=== PATIENT | female | born 1965 | race Caucasian/White ===

== ENCOUNTER 2017-12-10 16:53 | Emergency (ER) | payer BC, MEDICAID, OTHER, SELFPAY ==
[~2017-12-10] VITALS: Ht 165.1 cm; Wt 80.2 kg
[2017-12-10 17:07] VITALS: BP 131/87
[2017-12-10] MEDS ORDERED: BENZONATATE 100 MG CAPSULE PO ONE (18:00)
[2017-12-10] MEDS ORDERED: BENZONATATE 100 MG CAPSULE ONE (18:02)
== END 2017-12-10 18:39 | disposition home or self-care (01) ==
LOC: ED 17:30
DX: J45.909 Unspecified asthma, uncomplicated (principal); J20.8 Acute bronchitis due to other specified organisms
CPT/HCPCS: 71046; 99284

== ENCOUNTER 2018-11-27 20:50 | Observation (INO) | payer MEDICAID ==
[~2018-11-27] VITALS: Ht 162.6 cm; Wt 78.6 kg
--- NOTE | 2018-11-27 21:01 | NUR ---
BIB [facility] d/t sudden left side weakness or numbness unable to find word during the work at seven eleven when [facility] arrival pt's symptom's were gone pt [id number] left side numb was gone vss stable fsbs 97 12 ekg wdl pt denied pain hx depression hypothyroid
[2018-11-27] MEDS ORDERED: TRAZ-137 PO (21:05)
[2018-11-27] MEDS ORDERED: MONT10TA6 PO (21:05)
[2018-11-27] MEDS ORDERED: BENZ100C PO (21:05)
[2018-11-27] MEDS ORDERED: LORA10TA62 PO (21:05)
[2018-11-27] MEDS ORDERED: CYCL-259 PO (21:06)
--- NOTE | 2018-11-27 22:03 | NUR ---
given urine cup for ua pt understood
[2018-11-27 22:21] LABS: BASOPHILS # (AUTO) 0.02 x10^3/uL (0-0.1); BASOPHILS % (AUTO) 0 % (0-1); EOSINOPHILS # (AUTO) 0.11 x10^3/uL (0-0.4); EOSINOPHILS % (AUTO) 2 % (1-7); LYMPHOCYTES # (AUTO) 1.22 x10^3/uL (1-3.4); LYMPHOCYTES % (AUTO) 23 % (22-44); MD NO; MEAN CORPUSCULAR HGB CONC 33.5 g/dL (32.4-35.8); MEAN CORPUSCULAR VOLUME 92.5 fL (80-100); MEAN PLATELET VOLUME 8.6 fL (7.4-10.4); MONOCYTES # (AUTO) 0.55 x10^3/uL (0.2-0.8); MONOCYTES % (AUTO) 10 % (2-9); NEUTROPHILS # (AUTO) 3.47 x10^3/uL (1.8-6.8); NEUTROPHILS % (AUTO) 65 % (42-75); PLATELET COUNT 218 x10^3/uL (130-400); RED BLOOD COUNT 4.11 x10^6/uL (3.82-5.3); RED CELL DISTRIBUTION WIDTH 13.6 % (9.6-15.2)
[2018-11-27 22:28] LABS: INTERNATIONAL NORMALIZED RATIO 0.97 (0.93-1.1); PROTHROMBIN TIME 10.3 Seconds (9.6-11.5)
[2018-11-27 22:31] LABS: ALANINE AMINOTRANSFERASE 17 U/L (12-78); ANION GAP 4 mmol/L (5-15); CALCIUM 8.9 mg/dL (8.5-10.1); CHLORIDE 110 mmol/L (98-107); CREATININE 0.95 mg/dL (0.55-1.02)
[2018-11-27 22:35] LABS: ALKALINE PHOSPHATASE 94 U/L (45-117); BILIRUBIN,TOTAL 0.3 mg/dL (0.2-1.0); TOTAL PROTEIN 7.2 g/dL (6.4-8.2); TROPONIN I < 0.015 ng/mL (0.000-0.045)
[2018-11-27 23:35] LABS: MICROSCOPIC NOT IND
[2018-11-27 23:37] LABS: CULTURE INDICATED? NO
--- NOTE | 2018-11-27 23:54 | NUR ---
pt is resting vss
--- NOTE | 2018-11-28 00:59 | NUR ---
pt will be admitted d/t pt's symptoms having per julius mcmillan
--- NOTE | 2018-11-28 01:25 | NUR ---
given report to silvano rick updated
[2018-11-28 01:57] VITALS: BP 148/95
[2018-11-28 02:07] VITALS: BP 148/95
[2018-11-28] MEDS ORDERED: FAMO20TA7 PO (03:45)
[2018-11-28] MEDS ORDERED: POLYETHYLENE GLYCOL 17 GM PACKET PO PRN (05:00)
[2018-11-28] MEDS ORDERED: GUAIFENESIN/DM 200-20MG, 10ML UDC PO PRN (05:00)
[2018-11-28] MEDS ORDERED: ONDANSETRON 4 MG TABLET PO PRN (05:00)
[2018-11-28] MEDS ORDERED: ONDANSETRON 2MG/ML, 2ML IVPush PRN (05:00)
[2018-11-28] MEDS ORDERED: BENZONATATE 100 MG CAPSULE PO PRN (05:00)
[2018-11-28] MEDS ORDERED: ACETAMINOPHEN 325 MG TABLET PO PRN (05:00)
[2018-11-28] MEDS ORDERED: CYCLOBENZAPRINE 10 MG TABLET PO PRN (05:00)
[2018-11-28 06:22] LABS: CHOL/HDL RATIO 3.2; LDL/HDL RATIO 1.9 (0.5-3.0)
[2018-11-28 08:12] VITALS: BP 114/76
[2018-11-28] MEDS: SODIUM CHLORIDE 0.9% 1,000 ML IV SCH ×2 (08:50→14:57)
[2018-11-28] MEDS: LORATADINE 10 MG TABLET PO SCH (08:51)
[2018-11-28] MEDS: FAMOTIDINE 20 MG TABLET PO SCH ×2 (08:52→22:06)
[2018-11-28] MEDS: ASPIRIN 81 MG TABLET CHEW PO/NG SCH (08:52)
[2018-11-28] MEDS ORDERED: MONTELUKAST 10 MG TABLET PO SCH ×2 (09:00→21:00)
[2018-11-28] MEDS ORDERED: DIPHENHYDRAMINE 25 MG CAPSULE PO ONE (09:30)
[2018-11-28 13:04] VITALS: BP 115/76
[2018-11-28 18:21] VITALS: BP 126/74
[2018-11-28] MEDS ORDERED: ATORVASTATIN 40 MG TABLET PO SCH (21:00)
[2018-11-28] MEDS: TRAZODONE 100MG TABLET PO PRN ×2 (22:06→23:40)
[2018-11-29] MEDS: SODIUM CHLORIDE 0.9% 1,000 ML IV SCH (01:44)
[2018-11-29 04:46] VITALS: BP 105/69
[2018-11-29 07:54] VITALS: BP 111/76
[2018-11-29] MEDS: LORATADINE 10 MG TABLET PO SCH (08:31)
[2018-11-29] MEDS: ASPIRIN 81 MG TABLET CHEW PO/NG SCH (08:32)
[2018-11-29] MEDS: FAMOTIDINE 20 MG TABLET PO SCH (08:32)
[2018-11-29 12:37] VITALS: BP 112/71
[2018-11-29] MEDS ORDERED: ASPI81TA45 PO (13:37)
[2018-11-29] MEDS ORDERED: GUAI5SYR PO (13:37)
[2018-11-29] MEDS ORDERED: ATOR40TA78 PO (13:37)
== END 2018-11-29 15:22 | disposition home or self-care (01) ==
LOC: ED 21:42 → INTOOBSV 11-28 00:51 → EDIP 11-28 00:51 → 4EST 11-28 01:49 → DCLOUNGE 11-29 15:12
PROVIDERS: ADMIT Hospitalist; ATTEND Hospitalist
DX: G45.9 Transient cerebral ischemic attack, unspecified (principal); F10.10 Alcohol abuse, uncomplicated; J42 Unspecified chronic bronchitis; J45.909 Unspecified asthma, uncomplicated; F32.9 Major depressive disorder, single episode, unspecified; R42 Dizziness and giddiness
CPT/HCPCS: 0399T; 36415; 70450; 70551; 80053; 80061; 80307; 81003; 84484; 85025; 85610; 85730; 92610; 93005; 93306; 93880; 96360; 96361; 97161; 97165; 99284; G0378; J7030; 99285

== ENCOUNTER 2019-05-21 11:59 | Inpatient (IN) | payer MEDICAID ==
[~2019-05-21] VITALS: Ht 162.6 cm; Wt 68.2 kg
[2019-05-23 13:48] VITALS: BP 117/77
== END 2019-05-23 17:00 | disposition home health service (06) | DRG 552 ==
LOC: ED 13:58 → EDIP 14:01 → SUATTDRO 14:21 → 3NE 14:48 → DCLOUNGE 05-23 16:41
PROVIDERS: ADMIT Internal Medicine; ATTEND Internal Medicine
DX: S32.011A Stable burst fracture of first lumbar vertebra, initial encounter for closed fracture (principal); M51.36 Other intervertebral disc degeneration, lumbar region; W01.0XXA Fall on same level from slipping, tripping and stumbling without subsequent striking against object, initial encounter; J45.909 Unspecified asthma, uncomplicated; F17.200 Nicotine dependence, unspecified, uncomplicated; M41.9 Scoliosis, unspecified; Z86.73 Personal history of transient ischemic attack (TIA), and cerebral infarction without residual deficits; Y93.89 Activity, other specified; Y99.8 Other external cause status; Z82.3 Family history of stroke; Z90.710 Acquired absence of both cervix and uterus; Y92.009 Unspecified place in unspecified non-institutional (private) residence as the place of occurrence of the external cause; Z90.721 Acquired absence of ovaries, unilateral; M51.26 Other intervertebral disc displacement, lumbar region
CPT/HCPCS: 36415; 72128; 72131; 72148; 80048; 80053; 80307; 82040; 83735; 84100; 84443; 85025; 85610; 85730; 93005; 96374; 96376; G0378; J1885; J2405; J2270; J2800; J7030

== ENCOUNTER 2019-09-30 17:54 | Emergency (ER) | payer MEDICAID ==
[~2019-09-30] VITALS: Ht 162.6 cm; Wt 68.0 kg
[~2019-09-30 17:54] MED LIST: ACET325T26 PO; ASPI81TA45 PO; ATOR40TA78 PO; BENZ100C PO; BISA10SU4 PR; CYCL-259 PO; FAMO20TA7 PO; FENT1PAT74 TD; GUAI5SYR PO; HYDR-36 PO; LORA10TA62 PO; METH750T87 PO; MONT10TA6 PO; OMEP-110 PO; ONDA4TAB12 PO; POLY17PO5 PO; SENN-193 PO; TRAM50TA2 PO; TRAZ-137 PO
[2019-09-30 18:04] VITALS: BP 103/52
--- NOTE | 2019-09-30 18:19 | NUR ---
pt biba to ed for anxiety or back pain. pt is a poor historian and is rambling. pt initially stated she was "having a lot of drama in my life" regarding her daughter and grandson and custody issues. pt then stated she called ems for back pain related to a spinal fusion she had last month. per ems report, pt was briskly walking around home while chasing dog in an "anxious and paranoid" manner and in no obvious back pain. ems reports that pt's mother recently and she also quit taking trintellix (antidepressant). 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 Dr. Cheng to bs for assessment. awaiting orders.
[2019-09-30] MEDS ORDERED: HYDROcodone/APAP 5/325 TABLET PO STA (18:21)
[2019-09-30] MEDS ORDERED: HYDROcodone/APAP 5/325 TABLET ONE (18:31)
--- NOTE | 2019-09-30 18:37 | NUR ---
pt medicated per mar. vss. message left with sw for consult. warm blanket provided for comfort. no other needs expressed. call light within reach. awaiting sw consult.
--- NOTE | 2019-09-30 18:40 | NUR ---
bossman Billingsley to homero.
[2019-09-30] MEDS ORDERED: HYDROcodone/APAP 5/325 TABLET PO ONE (19:00)
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
== END 2019-09-30 19:55 | disposition home or self-care (01) ==
LOC: ED 19:22
DX: F41.1 Generalized anxiety disorder (principal); M54.5 Low back pain; M54.6 Pain in thoracic spine; I10 Essential (primary) hypertension; K21.9 Gastro-esophageal reflux disease without esophagitis; J45.909 Unspecified asthma, uncomplicated
CPT/HCPCS: 99283

== ENCOUNTER 2020-01-09 05:54 | Emergency (ER) | payer MEDICAID ==
[~2020-01-09] VITALS: Ht 170.2 cm; Wt 68.2 kg
[~2020-01-09 05:54] MED LIST changes: +ONDA-89 PO; -ONDA4TAB12 PO; -TRAZ-137 PO; +TRAZ-175 PO
[2020-01-09] MEDS ORDERED: CYCLOBENZAPRINE 10 MG TABLET ONE (06:43)
[2020-01-09] MEDS ORDERED: KETOROLAC 30 MG/1 ML ONE (06:44)
[2020-01-09] MEDS ORDERED: ONDANSETRON 2MG/ML, 2ML ONE (06:44)
[2020-01-09] MEDS ORDERED: HYDROmorphone 1 MG/ML, 1ML INJ ONE (06:44)
[2020-01-09] MEDS ORDERED: ONDANSETRON 2MG/ML, 2ML IVPush ONE (07:00)
[2020-01-09] MEDS ORDERED: CYCLOBENZAPRINE 10 MG TABLET PO ONE (07:00)
[2020-01-09] MEDS ORDERED: KETOROLAC 30 MG/1 ML IVPush ONE (07:00)
[2020-01-09] MEDS ORDERED: HYDROmorphone 1 MG/ML, 1ML INJ IVPush PRN (07:00)
--- NOTE | 2020-01-09 07:00 | NUR ---
assumed care of pt. ines from Devonte MCCRACKEN. pt here for pain contol. pt reports hat she is s/p lower back surgey and that she has completed her PT and is no longer tkaing any of her pain medication bu that yesterday she had s/o lower back pain. pt denies numbness/tingling o LW but reports hat she has had some loss of bladder control. pt is able to [place] on gurney without difficulty. 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 pt reports hat her initial pain score was 10/10 but is now down to 4/10 and that she is feeling much better. pt was slightly hypoxic on RA after pain meds, NC placed at 2L and hypoxia resolved. warm blankets given and pt positioning with lights dimmed for comfort. no family at bedside
[2020-01-09] MEDS ORDERED: trintellix PO (07:22)
[2020-01-09] MEDS ORDERED: FAMO20TA7 PO (07:22)
[2020-01-09 09:19] VITALS: BP 124/58
== END 2020-01-09 09:24 | disposition home or self-care (01) ==
LOC: ED 06:25
DX: S29.012A Strain of muscle and tendon of back wall of thorax, initial encounter (principal); J45.909 Unspecified asthma, uncomplicated; I10 Essential (primary) hypertension; K21.9 Gastro-esophageal reflux disease without esophagitis; E78.5 Hyperlipidemia, unspecified; X58.XXXA Exposure to other specified factors, initial encounter; Y93.89 Activity, other specified; Y92.89 Other specified places as the place of occurrence of the external cause; Y99.8 Other external cause status
CPT/HCPCS: 96374; 96375; 99284; J1170; J1885; J2405

== ENCOUNTER 2020-01-30 17:02 | Emergency (ER) | payer MEDICAID ==
[~2020-01-30] VITALS: Ht 162.6 cm; Wt 63.7 kg
[~2020-01-30 17:02] MED LIST changes: +trintellix PO
--- NOTE | 2020-01-30 17:54 | NUR ---
RIGHT UPPER BACK PAIN AFTER BENDING OVER TO BUTCHER HEAD DOG POOP
[2020-01-30] MEDS ORDERED: KETOROLAC 30 MG/1 ML IM ONE (18:00)
[2020-01-30] MEDS ORDERED: LORazepam 1MG TABLET PO ONE (18:00)
[2020-01-30] MEDS ORDERED: KETOROLAC 30 MG/1 ML ONE (18:05)
[2020-01-30] MEDS ORDERED: LORazepam 1MG TABLET ONE (18:05)
--- NOTE | 2020-01-30 18:27 | NUR ---
UPON RETURN FROM XRAY MEDICATED FOR RIGHT UPPER BACK PAIN, NOTED ON MAR
--- NOTE | 2020-01-30 19:00 | NUR ---
REPORT RECEIVED FROM NAWAF MISTRY. ASSUMED CARE OF PT. AT THIS TIME.
[2020-01-30] MEDS ORDERED: HYDROcodone/APAP 5/325 TABLET PO STA (19:33)
[2020-01-30] MEDS ORDERED: HYDROcodone/APAP 5/325 TABLET ONE (19:36)
[2020-01-30] MEDS ORDERED: LIDODERM 5% PATCH TD ONE ×2 (19:36→20:00)
--- NOTE | 2020-01-30 20:20 | NUR ---
PT REPORTS PAIN IS TOLERABLE AT THIS TIME, RATED AT 5/10. PT ABLE TO MOVE ALL EXTREMITIES W/O DIFFICULTY AND DRESSED SELF W/O GRIMACING. PT REQUESTED AND WAS PROVIDED WITH CAB VOUCHER. PT AO X 4. SKIN PWD. RESP EVEN AND UNLABORED.
[2020-01-30 20:35] VITALS: BP 106/75
== END 2020-01-30 20:38 | disposition home or self-care (01) ==
LOC: ED 19:13
DX: S29.012A Strain of muscle and tendon of back wall of thorax, initial encounter (principal); I10 Essential (primary) hypertension; K21.9 Gastro-esophageal reflux disease without esophagitis; J45.909 Unspecified asthma, uncomplicated; E78.5 Hyperlipidemia, unspecified; G89.29 Other chronic pain; X58.XXXA Exposure to other specified factors, initial encounter; Y93.89 Activity, other specified; Y92.89 Other specified places as the place of occurrence of the external cause; Y99.8 Other external cause status
CPT/HCPCS: 72072; 96372; 99284; J1885

== ENCOUNTER 2020-02-20 00:23 | Emergency (ER) | payer MEDICAID ==
[~2020-02-20] VITALS: Ht 162.6 cm; Wt 65.0 kg
[2020-02-20 00:43] VITALS: BP 137/83
--- NOTE | 2020-02-20 00:46 | NUR ---
Patient BIB [facility] c/o right back pain which radiates into right shoulder post mechanical GLF. Patient states she tripped and hyperextended her back. Patient has a hx of back surgeries with chronic pain. Patient is wearing a back brace which she does not wear all the time but only for certain tasks. Patient is in NAD. Respirations even and unlabored.
[2020-02-20] MEDS ORDERED: METHOCARBAMOL 750 MG TABLET PO ONE (01:00)
[2020-02-20] MEDS ORDERED: METHOCARBAMOL 750 MG TABLET ONE (01:18)
== END 2020-02-20 01:24 | disposition home or self-care (01) ==
LOC: ED 01:00
DX: S29.012A Strain of muscle and tendon of back wall of thorax, initial encounter (principal); I10 Essential (primary) hypertension; K21.9 Gastro-esophageal reflux disease without esophagitis; G89.29 Other chronic pain; J45.909 Unspecified asthma, uncomplicated; E78.5 Hyperlipidemia, unspecified; W01.0XXA Fall on same level from slipping, tripping and stumbling without subsequent striking against object, initial encounter; Y93.89 Activity, other specified; Y92.098 Other place in other non-institutional residence as the place of occurrence of the external cause; Y99.8 Other external cause status
CPT/HCPCS: 72072; 99283

== ENCOUNTER 2020-03-04 06:24 | Emergency (ER) | payer MEDICAID ==
[~2020-03-04] VITALS: Ht 162.6 cm; Wt 75.0 kg
[~2020-03-04 06:24] MED LIST changes: +HYDR-3246 PO; -HYDR-36 PO
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
[2020-03-04] MEDS ORDERED: LORazepam 1MG TABLET ONE (06:54)
--- NOTE | 2020-03-04 06:58 | NUR ---
MEDICATED PER MAR.
[2020-03-04] MEDS ORDERED: LORazepam 1MG TABLET PO ONE (07:00)
--- NOTE | 2020-03-04 07:01 | NUR ---
REPORT GIVEN TO JERAMY MCCRACKEN.
[2020-03-04 07:23] LABS: BASOPHILS # (AUTO) 0.02 x10^3/uL (0-0.1); BASOPHILS % (AUTO) 1 % (0-1); EOSINOPHILS # (AUTO) 0.27 x10^3/uL (0-0.4); EOSINOPHILS % (AUTO) 5 % (1-7); LYMPHOCYTES # (AUTO) 2.18 x10^3/uL (1-3.4); LYMPHOCYTES % (AUTO) 44 % (22-44); MD NO; MEAN CORPUSCULAR HEMOGLOBIN 32.6 pg (27.0-34.8); MEAN CORPUSCULAR HGB CONC 33.5 g/dL (32.4-35.8); MEAN CORPUSCULAR VOLUME 97.2 fL (80-100); MEAN PLATELET VOLUME 8.2 fL (7.4-10.4); MONOCYTES # (AUTO) 0.31 x10^3/uL (0.2-0.8); MONOCYTES % (AUTO) 6 % (2-9); NEUTROPHILS # (AUTO) 2.21 x10^3/uL (1.8-6.8); NEUTROPHILS % (AUTO) 44 % (42-75); PLATELET COUNT 166 x10^3/uL (130-400); RED BLOOD COUNT 4.25 x10^6/uL (3.82-5.3); RED CELL DISTRIBUTION WIDTH 14.4 % (9.6-15.2)
[2020-03-04 07:30] VITALS: BP 147/107
--- NOTE | 2020-03-04 07:31 | NUR ---
PT AMBULATED TO BR WITH STEADY GAIT, PT PROVIDED UA SAMPLE, THIS SENT TO LAB. PT ANXIOUS, REQUESTING THIS RN TO CALL EMERGENCY CONTACT, EXPLAINED TO PT WE ARE AWAITING LABS AND TESTS RESULTS, PT WANTS CONTACT TO KNOW SHE IS HERE. WILL CALL DENISE FRITZ [phone]
[2020-03-04 07:34] LABS: ALANINE AMINOTRANSFERASE 33 U/L (12-78); ALBUMIN 3.9 g/dL (3.4-5.0); ANION GAP 8 mmol/L (5-15); CALCIUM 8.6 mg/dL (8.5-10.1); CHLORIDE 109 mmol/L (98-107)
[2020-03-04 07:37] LABS: ALKALINE PHOSPHATASE 133 U/L (45-117); BILIRUBIN,TOTAL 0.4 mg/dL (0.2-1.0); CREATININE 0.88 mg/dL (0.55-1.02); TOTAL PROTEIN 7.8 g/dL (6.4-8.2)
[2020-03-04 07:42] LABS: MICROSCOPIC AUTO
[2020-03-04 07:51] LABS: AMPHETAMINE SCREEN, URINE Negative (Negative); BARBITURATE SCREEN, URINE Negative (Negative); BENZODIAZEPINE SCREEN, URINE Negative (Negative); CANNABINOID SCREEN, URINE Negative (Negative); COCAINE SCREEN, URINE Negative (Negative); METHADONE SCREEN, URINE Negative (Negative); OPIATE SCREEN, URINE Negative (Negative)
--- NOTE | 2020-03-04 08:01 | NUR ---
PT NOW RUNNING OUT OF ROOM TO KUHN, STATES "SOMETHING IS WRONG WITH MY EYES, THEY ARE GOING TO BULGE OUT" PT CRYING, PT CALMED AND REASSURED, PT REFUSING MONITORING EQUIP AT THIS TIME. ERMD UPDATED
[2020-03-04] MEDS ORDERED: KETOROLAC 30 MG/1 ML ONE (08:15)
[2020-03-04] MEDS ORDERED: ACETAMINOPHEN 325 MG TABLET ONE (08:15)
[2020-03-04] MEDS ORDERED: KETOROLAC 30 MG/1 ML IM ONE (08:30)
[2020-03-04] MEDS ORDERED: ACETAMINOPHEN 325 MG TABLET PO ONE (08:30)
--- NOTE | 2020-03-04 09:02 | NUR ---
EMERGENCY CONTACTED CALLED AND UPDATED ON PT STATUS, PER PT REQUEST. AWAITING DENISE TO HYPERBARIC TECHNOLOGIST PT AT THIS TIME.
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
== END 2020-03-04 09:46 | disposition left against medical advice (07) ==
LOC: ED 06:39
DX: F41.1 Generalized anxiety disorder (principal); N30.00 Acute cystitis without hematuria; F10.229 Alcohol dependence with intoxication, unspecified; R41.0 Disorientation, unspecified; G89.29 Other chronic pain; I10 Essential (primary) hypertension; J45.909 Unspecified asthma, uncomplicated; E78.5 Hyperlipidemia, unspecified; K21.9 Gastro-esophageal reflux disease without esophagitis; Y90.0 Blood alcohol level of less than 20 mg/100 ml
CPT/HCPCS: 36415; 80053; 80307; 81001; 82140; 83690; 85025; 87086; 96372; 99283; J1885

== ENCOUNTER 2020-03-29 20:34 | Emergency (ER) | payer MEDICAID ==
[~2020-03-29] VITALS: Ht 162.6 cm; Wt 70.0 kg
[2020-03-29] MEDS ORDERED: LORazepam 1MG TABLET PO ONE (21:00)
[2020-03-29] MEDS ORDERED: SODIUM CHLORIDE FLUSH 10ML SYR IVF ONE (21:00)
[2020-03-29] MEDS ORDERED: LORazepam 1MG TABLET ONE (21:21)
--- NOTE | 2020-03-29 21:28 | NUR ---
Pt to CT
[2020-03-29 21:31] LABS: BASOPHILS # (AUTO) 0.04 x10^3/uL (0-0.1); BASOPHILS % (AUTO) 1 % (0-1); EOSINOPHILS # (AUTO) 0.15 x10^3/uL (0-0.4); EOSINOPHILS % (AUTO) 3 % (1-7); LYMPHOCYTES # (AUTO) 1.59 x10^3/uL (1-3.4); LYMPHOCYTES % (AUTO) 35 % (22-44); MD NO; MEAN CORPUSCULAR HEMOGLOBIN 32.8 pg (27.0-34.8); MEAN CORPUSCULAR HGB CONC 32.3 g/dL (32.4-35.8); MEAN CORPUSCULAR VOLUME 101.7 fL (80-100); MEAN PLATELET VOLUME 8.1 fL (7.4-10.4); MONOCYTES # (AUTO) 0.37 x10^3/uL (0.2-0.8); MONOCYTES % (AUTO) 8 % (2-9); NEUTROPHILS # (AUTO) 2.34 x10^3/uL (1.8-6.8); NEUTROPHILS % (AUTO) 52 % (42-75); PLATELET COUNT 186 x10^3/uL (130-400); RED BLOOD COUNT 4.01 x10^6/uL (3.82-5.3); RED CELL DISTRIBUTION WIDTH 16.4 % (9.6-15.2)
[2020-03-29 21:36] LABS: ALANINE AMINOTRANSFERASE 25 U/L (12-78); ALBUMIN 3.7 g/dL (3.4-5.0); ANION GAP 7 mmol/L (5-15); CALCIUM 7.8 mg/dL (8.5-10.1); CHLORIDE 109 mmol/L (98-107); CREATININE 1.18 mg/dL (0.55-1.02)
[2020-03-29 21:40] LABS: ALKALINE PHOSPHATASE 128 U/L (45-117); BILIRUBIN,TOTAL 0.3 mg/dL (0.2-1.0); TOTAL PROTEIN 7.4 g/dL (6.4-8.2)
--- NOTE | 2020-03-29 21:54 | NUR ---
Pt able to ambulate to restroom without issue.
[2020-03-29 22:12] LABS: MICROSCOPIC NOT IND
[2020-03-29] MEDS ORDERED: IBUPROFEN 600 MG TABLET ONE (22:23)
[2020-03-29 22:26] LABS: AMPHETAMINE SCREEN, URINE Negative (Negative); BARBITURATE SCREEN, URINE Negative (Negative); BENZODIAZEPINE SCREEN, URINE Negative (Negative); CANNABINOID SCREEN, URINE Negative (Negative); COCAINE SCREEN, URINE Negative (Negative); METHADONE SCREEN, URINE Negative (Negative); OPIATE SCREEN, URINE Negative (Negative)
[2020-03-29] MEDS ORDERED: IBUPROFEN 600 MG TABLET PO ONE (22:30)
--- NOTE | 2020-03-29 22:30 | NUR ---
Pt answering questions more appropriately, speech more clear. Provided with pain medication per request. Provided with po fluids, additional blanket.
--- NOTE | 2020-03-29 22:57 | NUR ---
Handoff report provided to NAWAF Garcia.
[2020-03-29 23:54] VITALS: BP 122/74
--- NOTE | 2020-03-30 00:11 | NUR ---
PT REQUESTED TO GO HOME, PT A/O X4 AND AMBULATED TO BATHROOM WITHOUT ISSUE
== END 2020-03-30 00:29 | disposition home or self-care (01) ==
LOC: ED 21:44
DX: F10.120 Alcohol abuse with intoxication, uncomplicated (principal); F41.1 Generalized anxiety disorder; R20.2 Paresthesia of skin; R51 Headache; R94.31 Abnormal electrocardiogram [ECG] [EKG]; I10 Essential (primary) hypertension; E78.5 Hyperlipidemia, unspecified; K21.9 Gastro-esophageal reflux disease without esophagitis; Y90.9 Presence of alcohol in blood, level not specified
CPT/HCPCS: 36415; 70450; 80053; 80307; 81003; 85025; 93005; 99285

== ENCOUNTER 2020-11-10 19:57 | Emergency (ER) | payer MEDICAID ==
[~2020-11-10] VITALS: Ht 162.6 cm; Wt 62.0 kg
[~2020-11-10 19:57] MED LIST changes: -CYCL-259 PO; +CYCL10TA2 PO; -HYDR-3246 PO; +HYDR-3248 PO; +LORA-59 PO; -LORA10TA62 PO
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
[2020-11-10] MEDS ORDERED: HYDROcodone/APAP 5/325 TABLET ONE (20:25)
[2020-11-10] MEDS ORDERED: HYDROcodone/APAP 5/325 TABLET PO ONE (20:30)
[2020-11-10 20:31] VITALS: BP 119/64
== END 2020-11-10 21:47 | disposition home or self-care (01) ==
LOC: ED 21:00
DX: S62.112A Displaced fracture of triquetrum [cuneiform] bone, left wrist, initial encounter for closed fracture (principal); W01.0XXA Fall on same level from slipping, tripping and stumbling without subsequent striking against object, initial encounter; Y93.89 Activity, other specified; Y92.009 Unspecified place in unspecified non-institutional (private) residence as the place of occurrence of the external cause; Y99.8 Other external cause status
CPT/HCPCS: 29105; 29515; 99284